=== PATIENT | male | born 1955 | race Caucasian/White ===

== ENCOUNTER 2017-04-13 06:22 | Inpatient (IN) ==
--- NOTE | 2017-04-12 22:07 | Discharge Summary ---
<Shannan Wang - Last Filed: 04/12/17 22:02> Date of Encounter: 04/12/17 - Discharge Diagnosis (1) Rotator cuff tear arthropathy of right shoulder Priority: Primary Status: Acute (2) Status post total replacement of right shoulder Priority: Primary Status: Acute (3) Obesity Priority: Secondary Status: Chronic Qualifiers: Obesity type: due to excess calories Obesity classification: unspecified obesity classification Serious obesity comorbidity presence: without serious comorbidity Qualified Code(s): E66.09 - Other obesity due to excess calories - Discharge Medications Home Medications: OxyCODONE Immed Rel [Roxicodone 5 MG] 5 - 10 mg PO Q6HR PRN #40 tablet 04/12/17 [Rx] Polyethylene Glycol 3350 [MiraLAX] 17 gm PO DAILY 04/13/17 [History] Allergies/Adverse Reactions: Allergies Sulfa (Sulfonamide Antibiotics) Allergy (Verified 04/13/17 06:59) Gastrointestinal Upset Primary care physician: Skip Diamond - Patient Status Disposition: Home, Self-Care Condition: Good - Discharge Instructions Follow Up With: Da Luis MD [Partnered Physician] - 05/13/17 4:50 pm Shannan Wang PAC [Physician Boot And Saddle Repair Person] - 04/23/17 9:45 am Additional Instructions: Discharge Instructions: Total Shoulder Please call [facility] ([phone]), your Primary Care Physician, or report to the Emergency Room if you have any of the following symptoms: Nausea, vomiting, fever greater that 101.5, swelling, chest pain, shortness of breath, increased pain/redness/drainage/odor for your incision site, numbness/ tingling, or any other concerning symptoms. ACTIVITY: Always keep your arm in the sling. Do not raise your arm away from your body. Do not use your arm to help with getting in or out of bed. No weight bearing permitted. Only perform those exercises given to you by your therapist. MEDICATIONS: Upon discharge resume your home medications. Take all the medications as prescribed. Take a stool softener if taking narcotic pain medications. Stool softeners are only effective if you drink enough fluids. Drink 6-8 glass of water or fluids a day, unless this is not allowed for another health problem. Despite using stool softeners, if you haven't had a bowel movement in 3 days, please switch to a gentle laxative. Gentle laxatives are sold over the counter. You should have a bowel movement within 24 hours, if not call the office. You will be discharged from the hospital with a prescription for pain medication. You are encouraged to decrease the use of narcotic pain medication as tolerated. Should you require a refill, please call the office. [facility] prescribes narcotic pain medication for only 4-6 weeks after surgery. If you require pain medication beyond this time period, you may be referred to your Primary Care Physician or to the Pain Clinic for further evaluation. Plan ahead for refills on pain medication as many narcotics either need to be picked up at the office or mailed. It is best to call 48-72 hours in advance of needing a prescription refill so you don't run out of medication. To help control the post-operative pain, you may take NSAIDs (Aleve,Advil, Motrin, Ibuprofen, Naprosyn) or Tylenol as prescribed on the bottle in addition to the pain medication. WOUND CARE: Leave the dressing on for 7-10 days. You may change the dressing if it becomes saturated greater than 50%. Do not get the dressing wet at anytime. Wash your hands with antibacterial soap, rinse and dry prior to any wound care. If you have elvin the visiting nurse or rehab facility can remove the stapes 10-14 days after surgery and place steri-strips across the wound. Leave the steri-strips in place until they fall off on their own. You may let water from the shower run on top of the steri-strips. If you do not have a visiting nurse or rehab facility, you will need to return to the office at 10-14 days for the elvin to be removed. If you have itching or redness around the dressing call the office. FOLLOW-UP: Please follow up with your surgeon in the orthopedic clinic, as scheduled - Hospital Course Hospital course: Mr. Mendiola is a 61 year old male - Time Spent with Patient Total time spent providing and/or coordinating discharge services: <Da Luis - Last Filed: 04/13/17 16:58> Date of Encounter: 04/13/17 Time of Encounter: 16:57 - Discharge Diagnosis (1) Morbid obesity with BMI of 40.0-44.9, adult Priority: Secondary Status: Chronic (2) Rotator cuff tear arthropathy of right shoulder Priority: Primary Status: Chronic (3) Status post total replacement of right shoulder Priority: Primary Status: Acute Primary care physician: Skip Diamond - Patient Status Functional capacity at discharge: uses cane/walker Overall status at discharge: patient is progressing back to baseline - Hospital Course Hospital course: Mr. Mendiola is a 61 year old male Status post right total shoulder replacement reverse, patient stable discharged home today - Time Spent with Patient Total time spent providing and/or coordinating discharge services:
--- NOTE | 2017-04-12 22:09 | Physician Discharge Referral ---
Home Health/Hosp Referral Info Transfer to: Home Health Provider in Charge Post Discharge: PCP - Diagnosis (1) Rotator cuff tear arthropathy of right shoulder Priority: Primary Status: Acute (2) Status post total replacement of right shoulder Priority: Primary Status: Acute (3) Obesity Priority: Secondary Status: Chronic - Respiratory Orders None Smoking Cessation: Smoking cessation has been advised. For more information, call the [employer] Tobacco Quit Line at 4-809-TNKO-NOW. - Diet/Nutrition Diet/Nutrition Orders: Regular - Activity Activity Orders: Up ad rudi, Ambulate - Services Needed Following services are medically necessary services: Nursing, Home Health Aide, Physical Therapy, Occupational Therapy Other Treatments: Opsite dressing, leave intact until first post-operative visit. If dressing becomes >50% saturated, contact office, remove dressing and place appropriate dressing in its place. Do not allow for dressing to get wet. Shoulder Precautions x 6 weeks. Apply cold therapy wrap 3-6x/day for 20 minutes at a time. Encourage ambulation throughout the day. Use Incentive spirometer 10x/hour. Elevate affected extremity above heart as tolerated. NWB to affected upper extremity x 6 weeks. Will remove brace at first post-operative appointment. OK to remove during PT/ OT and Home exercises. - Transfer Medications Prescriptions: OxyCODONE Immed Rel [Roxicodone 5 MG] 5 - 10 mg PO Q6HR PRN #40 tablet PRN Reason: Pain Home Medications: OxyCODONE Immed Rel [Roxicodone 5 MG] 5 - 10 mg PO Q6HR PRN #40 tablet 04/12/17 [Rx] Allergies/Adverse Reactions: Allergies Sulfa (Sulfonamide Antibiotics) Allergy (Unverified 04/07/17 14:58) Gastrointestinal Upset Certification: Further, I certify that my clinical findings support that this patient is homebound (i.e. absences from home require considerable and taxing effort and are for medical reasons or moravian services or infrequently or short duration when for other reasons) because: Homebound Reason: Post-surgery restriction and or conditions limit ability to leave home Attestation: My signature below is to certify that this patient is under my care and that I, or nurse practitioner, or a physician's financial planning assistant working with me, has a face-to -face encounter with this patient.
--- NOTE | 2017-04-13 06:33 | History & Physical Report ---
Date of Encounter: 04/13/17 Time of Encounter: 06:33 24 Hour HP Update - Instructions Instructions: If the History and Physical is less than 30 days old and was completed prior to A.M. admission and or procedure and has NOT been updated on calendar day of procedure please complete this update prior to performing procedure. - Update Patient reports changes in Medical Condition: No Changes in examination, assessment, or condition: No Changes in Medication: No Preop tests/diagnostics Reviewed: Yes Surgery Remains Indicated: Yes Consent for Planned Operative Procedure(s) Verified: Yes - Pre-Operative Checklist Preoperative Checklist Indicated: No Prophylactic Antibiotic Ordered: Yes Is VTE Prophylaxis Indicated?: Yes
[2017-04-13] MEDS ORDERED: CeFAZolin Pre 3,000 MG/100 ML 3,000 MG/100 ML BAG IVPB ONE (06:38)
[2017-04-13] MEDS ORDERED: Ringers Solution, Lactated 1,000 ML IVC SCH ×2 (06:45→10:40)
--- NOTE | 2017-04-13 07:58 | Anesthesia Evaluation PreOp ---
Date of Encounter: 04/13/17 Time of Encounter: 07:56 - Past History Planned Operation: r tsr, reversal Cardiac History: Denies any Significant Hx Pulmonary History: Denies Any Significant HX FINAL TESTER History: Denies Any Significant HX Other Medical History: Denies Any Significant HX Anesthesia History: No Prior Anesthetic Complications, Past Anesthesia (b tka) Alcohol Use: none Drug use: unknown Medications and Allergies OxyCODONE Immed Rel [Roxicodone 5 MG] 5 - 10 mg PO Q6HR PRN #40 tablet 04/12/17 [Rx] Polyethylene Glycol 3350 [MiraLAX] 17 gm PO DAILY 04/13/17 [History] Allergies Sulfa (Sulfonamide Antibiotics) Allergy (Verified 04/13/17 06:59) Gastrointestinal Upset - Meds/Allergy Pre-op Review Medications Reviewed: Yes Allergies Reviewed: Yes Beta Blockers on Current Med List: No Anesthesia Results - Labs Laboratory Tests 04/07/17 04/07/17 04/07/17 14:59 15:10 15:10 Hgb 13.7 Hct 41.3 Plt Count 253 PT 10.6 INR 1.0 APTT 27.0 Sodium 141 Potassium 3.9 Creatinine 1.15 - Imaging EKG: report reviewed (nsr) Anesthesia Exam O2 Sat Height 1.75 m Height 1.75 m Height 1.75 m Weight 130.635 kg Weight 130.635 kg Weight 130.635 kg O2 Sat by Pulse Oximetry 96 O2 Sat by Pulse Oximetry 1 O2 Sat by Pulse Oximetry 18 Vital Signs Temp Pulse Resp BP Pulse Ox 98.0 F 71 18 140/91 18 04/13/17 06:47 04/13/17 06:47 04/13/17 06:47 04/13/17 06:47 04/13/17 06:47 Height: 1.75 Weight: 131 NPO (# of Hours): >8 - HEENT Pupil (Motor): Pupils equal, EOMI Mallampati: II Teeth: Poor dentition Oral Opening: Greater than 3 - FINAL TESTER LOC: Oriented FINAL TESTER Motor: Normal RUE, Normal LUE, Normal RLE, Normal LLE, Normal Face FINAL TESTER Sensory: Normal: RUE, LUE, RLE, LLE, Face - Cardiac Rhythm: Regular Murmur: None - Pulmonary Breath Sounds: bilateral Clear Respiratory Effort: Symmetrical - Additional Findings r thumb has limited mobility. pt states he "injured it on the trash can" Anesthesia Assess/Plan ASA Score: 3 Modified Sherman Scale for Level of Consciousness: Cooperative, oriented, and tranquil Anesthetic Plan: General, Regional Monitoring Plan: Standard Monitors Recovery Plan: PACU
[2017-04-13] MEDS ORDERED: *HR* Propofol 200 MG/20 ML VIAL IVP ONE (08:01)
[2017-04-13] MEDS ORDERED: *HR* Midazolam HCl 5 MG/5 ML VIAL IVP ONE (08:01)
[2017-04-13] MEDS ORDERED: Lidocaine -MPF 2% 2 ML VIAL ONE (08:03)
[2017-04-13] MEDS ORDERED: ROPIVACAINE HCL/PF 0.5% 30 ML VIAL ONE (08:12)
[2017-04-13] MEDS ORDERED: CloNIDine Patch 0.1 MG PATCH (WEEKLY) TD SCH (08:15)
--- NOTE | 2017-04-13 08:50 | Anesthesia Procedures ---
Date of Encounter: 04/13/17 Time of Encounter: 08:48 Procedures: Anesthesia - Nerve Block Procedure Date: 04/13/17 Time: 08:48 Allergies/Adv Reactions: sulfa Pre-op Diagnosis: right shoulder rc arthropathy Surgical Procedure: right rev TSA Checklist: Correct Patient Identifier, Correct procedure, History checked Correct side: Right Blood Thinner: No Monitor Applied: EKG, BP, Pulse Oximetry Supplemental Oxygen via Nasal Cannula (L/min): 2 Sedation: Versed (mg): 5 Indication: Post Op Analgesia Pre-op Neuro Deficits: No Block Type: Interscalene Catheter placed: No Sterile Technique: Yes Ultrasound used: Yes Anatomy identified: Yes Visual spread of Local: Yes Neuro Stimulation: No Blood on Needle Aspiration: No Smooth Injection of Local: Yes Pain with Injection of Local: No Prep: Chlorhexadine Needle: 22 x 50 mm Stimuplex Local: Ropivacaine (0.5%), Other (decadron 8mg) Volume (cc): 15 Number of Attempts: 1 Complications: None/effective block Vitals: Vital Signs/O2 Sat/Glucose, Most Recent Temp Pulse Resp BP Pulse Ox 98.0 F 73 16 132/75 95 04/13/17 06:50 04/13/17 08:49 04/13/17 08:49 04/13/17 08:49 04/13/17 08:49
[2017-04-13] MEDS ORDERED: Ondansetron 4 MG/2 ML VIAL ONE (09:18)
[2017-04-13] MEDS ORDERED: Dexamethasone 4 MG/ML VIAL ONE (09:30)
[2017-04-13] MEDS ORDERED: EPHEDrine 50 MG/ML VIAL ONE (09:40)
[2017-04-13] MEDS ORDERED: *HR* Promethazine 25 MG/ML VIAL IVP PRN (09:52)
--- NOTE | 2017-04-13 09:52 | Orthopedic Operative Note ---
Date of procedure: 04/13/17 Pre-op diagnosis: Right cuff tear arthropathy Post-op diagnosis: same Procedure: Procedure: Total Shoulder Replacment Reverse, right Estimated blood loss: 100 cc Hardware: Metal and polyethylene replacement: Arthrex large glenoid baseplate, 2 4.5 screws. 1 6.5 screw, 42+4 glenosphere, 10 humeral stem, poly insert 3 and 12 metal Exam Under anesthesia: Full motion no instability Procedural Notes: Irreparable tear supraspinatus tendon. Operative procedure: The patient was brought to the operating room and placed on the operating room table. After general anesthesia was administered the operative shoulder was examined. Findings were noted. The patient was placed in the modified beachchair position. All pressure points were padded appropriately. And the head was stabilized in the neutral position. The operative extremity was prepped and draped in the sterile surgical fashion. The patient received IV antibiotics prior to skin incision. A standard deltopectoral approach was made to the operative shoulder. Incision was made to the skin and subcutaneous tissue,hemo stasis was obtained with Bovie cautery. Using careful blunt dissection the cephalic vein was identified and mobilized medially. The deltopectoral interval was developed and the clavipectoral fascia was incised. The subscap was released off the lesser tuberosity and tagged with #2 FiberWire suture subscap was irreparable.. The humerus was dislocated patient noted to have irreparable tear supraspinatus tendon, and the humeral cut was made along the anatomic neck. Anterior and posterior Bankart retractors were placed to expose the glenoid. The glenoid guide was seated and the centering hole was made. It was reamed with the appropriate reamer. The large baseplate was seated and secured with (2) 4.5 screws and one 6.5 screw. The baseplate was irrigated and dried and the 42, +4 Glenosphere was seated and secured with the Silva taper. The Silva taper was tested and found to be secure the humerus was redislocated and prepared with the diaphyseal reamers, followed by a broaching process up to the appropriate size 12 in the patient's anatomic version. The metaphyseal reamer was then utilized. Trial reduction found the shoulder to be relocatable. Trial components were removed and The appropriate 12 stem was impacted in place in the patient's anatomic version. Trial reduction found the shoulder to be relocatable and stable with the appropriate 12 metal 3 Toña Trial component was removed and the real 12 metal 3 Toña was seated and secured the shoulder was reduced. The shoulder had excellent motion and excellent stability and no evidence of dislocation. The deep tissue was irrigated with pulse irrigation. The PA close the shoulder. The deltopectoral interval was closed with a running #1 PDS suture, subcutaneous tissue was irrigated and closed with 0 PDS suture, the skin was closed with Dermabond. The patient was placed in a sterile dressing, abduction brace and extubated. The patient was then transferred to the recovery room in stable condition. Anesthesia: TULIO Surgeon: Da Luis Phone Screener: Shannan Wang Condition: stable Disposition: PACU
[2017-04-13] MEDS ORDERED: *HR* HYDROmorphone (PF) 1 MG/ML SYRINGE ONE (10:13)
[2017-04-13] MEDS: *HR* HYDROmorphone (PF) 1 MG/ML SYRINGE IVP PRN ×2 (10:15→10:30)
[2017-04-13 10:33] LABS: Hematocrit 39.6 % (37.5-50.1); Hemoglobin 12.9 g/dL (12.9-16.9)
[2017-04-13] MEDS ORDERED: Ondansetron 4 MG/2 ML VIAL IVP PRN (10:40)
[2017-04-13] MEDS ORDERED: Sennosides 8.6 MG TABLET PO PRN (10:40)
[2017-04-13] MEDS ORDERED: *HR* HYDROmorphone (PF) 1 MG/ML SYRINGE IVP PRN (10:40)
[2017-04-13] MEDS ORDERED: Temazepam 15 MG CAPSULE PO PRN (10:40)
[2017-04-13] MEDS ORDERED: Naloxone 0.4 MG/ML INJ IVP PRN (10:40)
[2017-04-13] MEDS ORDERED: MOM Conc 10 ML UD.LIQ PO PRN (10:40)
[2017-04-13] MEDS ORDERED: *HR* OxyCODONE Immed Rel 5 MG TABLET PO PRN ×2 (10:40)
--- NOTE | 2017-04-13 10:44 | Anesthesia Evaluation Post Op ---
Date of Encounter: 04/13/17 Time of Encounter: 10:42 - Vital Signs Vital Signs: Last Vital Signs Temp 98.1 F 04/13/17 10:34 Pulse 76 04/13/17 10:34 Resp 16 04/13/17 10:34 BP 130/70 04/13/17 10:34 Pulse Ox 97 04/13/17 10:34 - Lungs Lungs: Clear Ascult./Percussion - Airway Airway: Non-obstructed - Cardiovascular Regular Rate - Mental Status Mental Status: Alert & Oriented, Answers Appropriately - Pain Pain Scale: 3 - Nausea Vomiting Nausea Vomiting: Not Present - Hydration Hydration: NPO - Discharge PostOp Status: Transfer Patient to floor
[2017-04-13 14:15] VITALS: BP 116/74
--- NOTE | 2017-04-13 16:50 | Electrocardiograph Report ---
[place] [facility] Test Date: 2017-04-13 Pat Name: Michael Mendiola Department: 106 Room: [facility] Gender: M Dean Of Students: [facility] : 1955 Requested By: Domingo Ayala Order Number: [id number] Reading MD: Mikey Church MD Measurements Intervals Lester Rate: 61 P: 22 UT: 182 QRS: -15 QRSD: 105 T: 19 QT: 414 QTc: 417 Interpretive Statements SINUS RHYTHM wnl Electronically Signed On 04-13-2017 16:49:12 EDT by Mikey Church MD
[2017-04-13] MEDS ORDERED: ceFAZolin 3,000 MG in D5% in Water 100 ML IVPB SCH (17:00)
[2017-04-13] MEDS ORDERED: *HR* Enoxaparin 30 MG/0.3 ML SYRINGE SQ SCH ×2 (18:00)
== END 2017-04-13 17:30 | disposition home health service (06) | DRG 483 ==
LOC: SAMDAY 06:22 → 3NENU 10:43
PROVIDERS: ADMIT Orthopaedic Surgery; ATTEND Orthopaedic Surgery